=== PATIENT | male | born 1990 | race Caucasian/White ===

== ENCOUNTER 2021-04-14 11:44 | Emergency (ER) | payer OTHER ==
[~2021-04-14 11:44] MED LIST: TAMIFLU 75MG CA75 MG PO
[2021-04-14 12:47] LABS: BASOPHIL 0.9 % (0-2); EOSINOPHIL 6.2 % (0-5); HCT 42.8 % (42.0-52.0); HGB 14.9 g/dl (13.2-18.0); LYMPHOCYTE 28.4 % (15-48); MCH 29.4 pg (25.0-31.0); MCHC 34.8 g/dL (32.0-36.0); MCV 84.4 fL (78.0-100.0); MONOCYTE 8.4 % (0-12); MPV 9.5 fL (6.0-9.5); NEUTROPHIL 55.7 % (41-80); NRBC 0; PLT 222 K/uL (150-400); RBC 5.07 M/uL (4.70-6.00); RDW 12.3 % (11.5-14.0); WBC 6.8 K/uL (4.0-10.5)
[2021-04-14 13:15] LABS: CORONAVIRUS 2019 SARS-COV-2 NEGATIVE (NEGATIVE); INFLUENZA A NAA NEGATIVE (NEGATIVE)
[2021-04-14 13:20] LABS: ALBUMIN 4.2 g/dL (3.4-5.0); BILIRUBIN - TOTAL 1.4 mg/dL (0.2-1.0); BUN/CREAT RATIO (CALC) 15.9 RATIO; CREATININE 0.88 mg/dL (0.67-1.17); GLOBULIN (CALCULATION) 3.4 g/dL; POTASSIUM 3.9 mmol/L (3.5-5.1); PRO-BNP 49 pg/mL (<125); TOTAL PROTEIN 7.6 g/dL (6.4-8.2)
[2021-04-14 14:03] LABS: BILIRUBIN NEGATIVE (NEGATIVE); BLOOD NEGATIVE Ery/uL (NEGATIVE); COLOR YELLOW (YELLOW); GLUCOSE (U) TRACE mg/dL (NORMAL); LEUKOCYTES NEGATIVE Leu/uL (NEGATIVE); NITRITE NEGATIVE (NEGATIVE); PROTEIN NEGATIVE (NEGATIVE); UROBILINOGEN 0.2 mg/dL (0.2-1.0)
[2021-04-14 14:04] LABS: AMPHETAMINES NEGATIVE (NEGATIVE); BARBITURATES NEGATIVE (NEGATIVE); ECSTASY (MDMA) NEGATIVE (NEGATIVE); MARIJUANA (THC) NEGATIVE (NEGATIVE); METHADONE NEGATIVE (NEGATIVE); OPIATES NEGATIVE (NEGATIVE); OXYCODONE NEGATIVE (NEGATIVE)
[2021-04-14 14:10] LABS: CLARITY CLOUDY (CLEAR)
[2021-04-14] MEDS ORDERED: ZOFRAN4 M1 PO (14:45)
[2021-04-14] MEDS ORDERED: ANTIVERT25 MG PO (14:45)
== END 2021-04-14 15:33 | disposition home or self-care (01) ==
LOC: FER 11:44
PROVIDERS: Internal Medicine
DX: H81.10 Benign paroxysmal vertigo, unspecified ear (principal); J45.909 Unspecified asthma, uncomplicated; Z20.822 Contact with and (suspected) exposure to COVID-19
CPT/HCPCS: 36415; 70450; 71045; 80053; 80305; 81003; 83880; 84145; 84443; 84484; 85025; 93005; J7030; U0002